=== PATIENT | male | born 1960 | race Caucasian/White ===

== ENCOUNTER 2020-05-30 11:50 | Emergency (ER) | payer OTHER, MEDICARE ==
[~2020-05-30] VITALS: Ht 188 cm; Wt 104.5 kg
[2020-05-30 11:54] VITALS: BP 122/103
[2020-05-30] MEDS ORDERED: diazepam 5mg tablet PO ONE (12:40)
[2020-05-30] MEDS ORDERED: PRED20TA PO (13:15)
[2020-05-30] MEDS ORDERED: DIAZ5TAB22 PO (13:15)
== END 2020-05-30 13:40 | disposition home or self-care (01) ==
LOC: ER 11:51
DX: S83.8X1A Sprain of other specified parts of right knee, initial encounter (principal); S39.012A Strain of muscle, fascia and tendon of lower back, initial encounter; G89.29 Other chronic pain; I25.10 Atherosclerotic heart disease of native coronary artery without angina pectoris; Z98.890 Other specified postprocedural states; Z79.899 Other long term (current) drug therapy; X50.9XXA Other and unspecified overexertion or strenuous movements or postures, initial encounter; Y93.89 Activity, other specified; Y92.89 Other specified places as the place of occurrence of the external cause; Y99.8 Other external cause status
CPT/HCPCS: 73564; 99283